=== PATIENT | male | born 1960 | race Caucasian/White ===

== ENCOUNTER → 2017-06-04 | Outpatient (CLI) | payer BC ==
--- NOTE | 2017-06-04 11:04 | ECHOS ---
STRESS ECHOCARDIOGRAM INDICATIONS: Chest pain. BASELINE HEART RATE: 59 BASELINE BLOOD PRESSURE: 109/63 MAXIMUM HEART RATE: 150 MAXIMUM BLOOD PRESSURE: 175/58 85% MPHR: 138 100% MPHR: 162 METS: 9.7 MAXIMUM STAGE REACHED: 3 TOTAL EXERCISE TIME: 8:00 Baseline EKG revealed normal sinus rhythm without significant ST-T changes. Patient walked on a standard Luis protocol for 8 minutes, developed shortness of breath and lightheadedness and therefore stress test was stopped. Patient also achieved more than 85% of predicted maximal heart rate. His maximal heart rate was 150 beats per minute which is well above 85% of predicted maximal. As patient mentioned exercised, he developed a rate-related right bundle branch block pattern without any changes to suggest ischemia. However, given the change in the EKG pattern, this is considered an inconclusive stress test by EKG criteria with fair exercise capacity and a target heart rate well above 85% of predicted maximal. Baseline echo images revealed normal wall motion and wall thickening of all segments. At peak exercise, there was good augmentation of wall motion and wall thickening of all segments suggesting that there is no stress-induced ischemia on this stress study. IMPRESSION: 1. Fair exercise capacity with inconclusive stress test by EKG criteria with a rate- related bundle branch block. Rare premature ventricular contractions and no clear- cut angina but he did have shortness of breath. 2. Normal stress echocardiogram without any evidence of ischemia. MMODL / IJN: [id number] /
== END | disposition home or self-care (01) ==
LOC: RADNMMAIN 09:31
PROVIDERS: ATTEND Family Medicine
DX: R06.02 Shortness of breath (principal)
CPT/HCPCS: 93017; 93350